=== PATIENT | female | born 1965 | race American Indian/Alaskan Native ===

== ENCOUNTER 2021-01-15 18:36 | Emergency (ER) | payer OTHER ==
--- NOTE | 2021-01-15 21:54 | Event Note ---
ED Screening Note Date of service: 01/15/21 Time: 21:52 ED Screening Note: 55-year-old -[place] female presents to the emergency room for elevated blood pressure. Patient has a history of hypertension is currently on amlodipine 5 mg daily. 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 Patient denies any chest pain no shortness of breath no change in vision no nausea no vomiting no headache. It was noted that patient's blood pressure in triage was 208/110 with a pulse of 120. I repeated after patient's been here in our blood pressure was 218/110 pulse of 119. This initial assessment/diagnostic orders/clinical plan/treatment(s) is/are subject to change based on patients health status, clinical progression and re- assessment by fellow clinical providers in the ED. Further treatment and workup at subsequent clinical providers discretion. Patient/guardian urged not to elope from the ED as their condition may be serious if not clinically assessed and managed. Initial orders include: CBC CMP urinalysis EKG has been ordered.
[2021-01-15 22:07] LABS: Basophils # (Auto) 0.1 K/mm3 (0.0-0.1); Basophils % (Auto) 1.7 % (0.0-1.8); Eosinophils # (Auto) 0.1 K/mm3 (0.0-0.4); Eosinophils % (Auto) 1.5 % (0.0-4.3); Hematocrit 41.9 % (30.3-42.9); Hemoglobin 14.2 gm/dl (10.1-14.3); Lymphocytes # (Auto) 2.2 K/mm3 (1.2-5.4); Lymphocytes % (Auto) 30.9 % (13.4-35.0); Mean Corpuscular HGB Conc 34 % (30-34); Mean Corpuscular Volume 93 fl (79-97); Monocytes # (Auto) 0.7 K/mm3 (0.0-0.8); Monocytes % (Auto) 9.9 % (0.0-7.3); Platelet Count 445 K/mm3 (140-440); Red Cell Distribution Width 14.1 % (13.2-15.2)
--- NOTE | 2021-01-15 22:13 | Emergency Department Report ---
ED General Adult HPI - General Chief complaint: High BP Stated complaint: HBP Time Seen by Provider: 01/15/21 22:10 Source: patient Mode of arrival: Wheelchair Limitations: No Limitations - History of Present Illness Initial comments: Blood pressure elevated at home. No symptoms, no n/v, no sob, no chest pain. Patient was being checked on by nurse because she is s/p toe amp, and bp was found to be elevated. she states that she has been eating more salt lately. -: Gradual - Related Data Previous Rx's Medication Instructions Recorded Last Taken Type Losartan Potassium 100 mg PO DAILY #90 tablet 01/16/21 Unknown Rx Potassium Chloride [K-Dur] 10 meq PO QDAY #90 tablet 01/16/21 Unknown Rx Allergies Allergy/AdvReac Type Severity Reaction Status Date / Time No Known Allergies Allergy Unverified 01/15/21 20:56 ED Review of Systems ROS: Stated complaint: HBP Other details as noted in HPI Constitutional: denies: chills, fever Eyes: denies: eye pain, eye discharge, vision change ENT: denies: ear pain, throat pain Respiratory: denies: cough, shortness of breath, wheezing Cardiovascular: denies: chest pain, palpitations Endocrine: no symptoms reported Gastrointestinal: denies: abdominal pain, nausea, diarrhea Genitourinary: denies: urgency, dysuria, discharge Musculoskeletal: denies: back pain, joint swelling, arthralgia Skin: denies: rash, lesions Neurological: denies: headache, weakness, paresthesias Psychiatric: denies: anxiety, depression Hematological/Lymphatic: denies: easy bleeding, easy bruising ED Past Medical Hx - Past Medical History Previous Medical History?: Yes Hx Hypertension: Yes Hx Diabetes: Yes - Surgical History Past Surgical History?: Yes Additional Surgical History: RT FOOT, 2ND,3RD DIGIT AMPUTATED,HASEEB PICC - Social History Smoking Status: Never Smoker Substance Use Type: None - Medications Home Medications: Home Medications Medication Instructions Recorded Confirmed Last Taken Type Losartan Potassium 100 mg PO DAILY #90 tablet 01/16/21 Unknown Rx Potassium Chloride [K-Dur] 10 meq PO QDAY #90 tablet 01/16/21 Unknown Rx ED Physical Exam - General Limitations: No Limitations General appearance: alert, in no apparent distress - Head Head exam: Present: atraumatic, normocephalic - Eye Eye exam: Present: normal appearance - ENT ENT exam: Present: mucous membranes moist - Neck Neck exam: Present: normal inspection - Respiratory Respiratory exam: Present: normal lung sounds bilaterally. Absent: respiratory distress - Cardiovascular Cardiovascular Exam: Present: regular rate, normal rhythm. Absent: systolic murmur, diastolic murmur, rubs, gallop - GI/Abdominal GI/Abdominal exam: Present: soft, normal bowel sounds - Extremities Exam Extremities exam: Present: normal inspection - Back Exam Back exam: Present: normal inspection - Neurological Exam Neurological exam: Present: alert, oriented X3 - Psychiatric Psychiatric exam: Present: normal affect, normal mood - Skin Skin exam: Present: warm, dry, intact, normal color. Absent: rash ED Course Vital Signs 01/15/21 01/15/21 01/15/21 19:45 20:45 22:06 Temperature 98.4 F 98.4 F Pulse Rate 119 H 120 H Respiratory 18 18 13 Rate Blood Pressure 208/103 208/110 O2 Sat by Pulse 99 100 98 Oximetry 01/15/21 01/15/21 01/15/21 22:15 22:30 22:31 Temperature Pulse Rate 107 H 104 H 100 H Respiratory 13 16 Rate Blood Pressure 214/105 214/105 214/105 O2 Sat by Pulse 99 99 Oximetry 01/15/21 01/15/21 01/15/21 22:45 23:00 23:15 Temperature Pulse Rate 88 87 84 Respiratory 17 14 17 Rate Blood Pressure 214/105 180/96 180/96 O2 Sat by Pulse 99 99 99 Oximetry 01/15/21 01/15/21 01/15/21 23:30 23:45 23:49 Temperature Pulse Rate 88 89 86 Respiratory 14 17 18 Rate Blood Pressure 185/97 185/97 185/97 O2 Sat by Pulse 100 100 99 Oximetry 01/15/21 01/16/21 01/16/21 23:55 00:00 00:15 Temperature Pulse Rate 91 H 95 H 84 Respiratory 19 15 Rate Blood Pressure 185/97 207/115 207/115 O2 Sat by Pulse 98 100 Oximetry 01/16/21 01/16/21 01/16/21 00:30 00:45 01:00 Temperature Pulse Rate 88 85 89 Respiratory 19 22 21 Rate Blood Pressure 188/111 188/111 150/90 O2 Sat by Pulse 99 98 97 Oximetry 01/16/21 01:15 Temperature Pulse Rate 85 Respiratory 19 Rate Blood Pressure 150/90 O2 Sat by Pulse 99 Oximetry ED Medical Decision Making - Lab Data Result diagrams: 01/15/21 21:26 01/15/21 21:26 - Medical Decision Making htn: treated with labetalol 20mg patient still hypertensive, clonidine 0.2mg po give, k: 2.7, patient treated with kdur 40mg po then krider 10mg iv. Blood pressure 150/90 at discharge. Patient feels much better. - Differential Diagnosis htn, Critical care attestation.: If time is entered above; I have spent that time in minutes in the direct care of this critically ill patient, excluding procedure time. ED Disposition Clinical Impression: Hypertension Qualifiers: Hypertension type: essential hypertension Qualified Code(s): I10 - Essential (primary) hypertension Disposition: - TO HOME OR SELFCARE Is pt being admited?: No Does the pt Need Aspirin: No Condition: Stable Instructions: Hypertension During , [id number], Preventing Hypertension, Hypertension, Adult, Hypertension (ED) Prescriptions: Potassium Chloride [K-Dur] 10 meq PO QDAY #90 tablet Losartan Potassium 100 mg PO DAILY #90 tablet Referrals: ANETA PEÑALOZA MD [Other] - 3-5 Days Forms: Work/School Release Form(ED)
[2021-01-15 22:27] LABS: Alanine Aminotransferase 16 units/L (7-56); Albumin 3.4 g/dL (3.9-5); BUN/Creatinine Ratio 12; Blood Urea Nitrogen 11 mg/dL (7-17); Calcium 9.3 mg/dL (8.4-10.2); Hemolysis Index 24
[2021-01-15] MEDS ORDERED: POTASSIUM CHLORIDE ER 20 MEQ TAB PO ONE (23:06)
[2021-01-15] MEDS ORDERED: cloNIDine 0.2 MG TAB PO ONE (23:06)
[2021-01-15] MEDS ORDERED: POTASSIUM CHLORIDE 10 MEQ 10 MEQ/100 ML BAG IV ONE (23:07)
[2021-01-16] MEDS ORDERED: hydrALAZINE 20 MG/1 ML INJ IV ONE (00:36)
[2021-01-16 01:42] VITALS: BP 150/90
== END 2021-01-16 01:42 | disposition home or self-care (01) ==
LOC: ED 18:36
DX: I10 Essential (primary) hypertension (principal); E11.9 Type 2 diabetes mellitus without complications; Z79.899 Other long term (current) drug therapy; Z98.890 Other specified postprocedural states; Z88.8 Allergy status to other drugs, medicaments and biological substances; Z88.6 Allergy status to analgesic agent
CPT/HCPCS: 36415; 80053; 85025; 96361; 96374; 99283; J1642; J3480

== ENCOUNTER 2021-01-17 00:29 | Emergency (ER) | payer OTHER ==
[2021-01-17] MEDS ORDERED: SODIUM CHLORIDE 0.9% 1000 ML 1,000 ML IV ONE (02:31)
--- NOTE | 2021-01-17 02:32 | Emergency Department Report ---
ED General Adult HPI - General Chief complaint: High BP Stated complaint: ELEVATED BP Source: patient Mode of arrival: Ambulatory Limitations: No Limitations - History of Present Illness Initial comments: Blood pressure elevated at home. No symptoms, no n/v, no sob, no chest pain. Patient was being checked on by nurse because she is s/p toe amp 01/01/21, and bp was found to be elevated. states back tonight for BP elevation , started amlodipine and losartan 2 days ago. pt denies symptoms at this time. - Related Data Previous Rx's Medication Instructions Recorded Last Taken Type Losartan Potassium 100 mg PO DAILY #90 tablet 01/16/21 Unknown Rx Potassium Chloride [K-Dur] 10 meq PO QDAY #90 tablet 01/16/21 Unknown Rx Allergies Allergy/AdvReac Type Severity Reaction Status Date / Time No Known Allergies Allergy Unverified 01/15/21 20:56 ED Review of Systems ROS: Stated complaint: ELEVATED BP Other details as noted in HPI Constitutional: denies: chills, fever Eyes: denies: eye pain, eye discharge, vision change ENT: denies: ear pain, throat pain Respiratory: denies: cough, shortness of breath, wheezing Cardiovascular: denies: chest pain, palpitations Endocrine: no symptoms reported Gastrointestinal: denies: abdominal pain, nausea, diarrhea Genitourinary: denies: urgency, dysuria, discharge Musculoskeletal: denies: back pain, joint swelling, arthralgia Skin: denies: rash, lesions Neurological: denies: headache, weakness, paresthesias Psychiatric: denies: anxiety, depression Hematological/Lymphatic: denies: easy bleeding, easy bruising ED Past Medical Hx - Past Medical History Previous Medical History?: Yes Hx Hypertension: Yes Hx Diabetes: Yes - Surgical History Past Surgical History?: Yes Additional Surgical History: RT FOOT, 2ND,3RD DIGIT AMPUTATED,HASEEB PICC - Social History Smoking Status: Never Smoker Substance Use Type: None - Medications Home Medications: Home Medications Medication Instructions Recorded Confirmed Last Taken Type Losartan Potassium 100 mg PO DAILY #90 tablet 01/16/21 Unknown Rx Potassium Chloride [K-Dur] 10 meq PO QDAY #90 tablet 01/16/21 Unknown Rx ED Physical Exam - General Limitations: No Limitations General appearance: alert, in no apparent distress - Head Head exam: Present: atraumatic, normocephalic - Eye Eye exam: Present: normal appearance, EOMI Pupils: Present: normal accommodation - ENT ENT exam: Present: normal exam, mucous membranes moist - Neck Neck exam: Present: normal inspection - Respiratory Respiratory exam: Present: normal lung sounds bilaterally. Absent: wheezes, chest wall tenderness - Cardiovascular Cardiovascular Exam: Present: normal rhythm, tachycardia, normal heart sounds. Absent: systolic murmur, diastolic murmur, rubs, gallop - GI/Abdominal GI/Abdominal exam: Present: soft, normal bowel sounds. Absent: distended, tenderness, bruit, hernia - Extremities Exam Extremities exam: Present: normal inspection - Back Exam Back exam: Present: normal inspection - Neurological Exam Neurological exam: Present: alert, oriented X3 - Psychiatric Psychiatric exam: Present: normal affect, normal mood - Skin Skin exam: Present: warm, dry, intact, normal color. Absent: rash ED Course Vital Signs 01/17/21 01:26 Temperature 98.1 F Pulse Rate 120 H Respiratory 16 Rate Blood Pressure 236/105 O2 Sat by Pulse 99 Oximetry Critical care attestation.: If time is entered above; I have spent that time in minutes in the direct care of this critically ill patient, excluding procedure time. ED Disposition Condition: Stable
[2021-01-17 03:05] LABS: Basophils # (Auto) 0.1 K/mm3 (0.0-0.1); Basophils % (Auto) 0.7 % (0.0-1.8); Eosinophils # (Auto) 0.2 K/mm3 (0.0-0.4); Eosinophils % (Auto) 1.7 % (0.0-4.3); Hematocrit 37.7 % (30.3-42.9); Hemoglobin 12.9 gm/dl (10.1-14.3); Lymphocytes # (Auto) 2.8 K/mm3 (1.2-5.4); Lymphocytes % (Auto) 28.5 % (13.4-35.0); Mean Corpuscular HGB Conc 34 % (30-34); Mean Corpuscular Volume 91 fl (79-97); Monocytes # (Auto) 0.9 K/mm3 (0.0-0.8); Monocytes % (Auto) 9.8 % (0.0-7.3); Platelet Count 479 K/mm3 (140-440); Red Blood Count 4.13 M/mm3 (3.65-5.03); Red Cell Distribution Width 13.9 % (13.2-15.2)
[2021-01-17 03:22] LABS: Alanine Aminotransferase 13 units/L (7-56); Albumin 4.1 g/dL (3.9-5); BUN/Creatinine Ratio 15; Blood Urea Nitrogen 12 mg/dL (7-17); Calcium 9.4 mg/dL (8.4-10.2); Hemolysis Index 29
--- NOTE | 2021-01-17 04:04 | Emergency Department Report ---
ED General Adult HPI - General Chief complaint: High BP Stated complaint: ELEVATED BP PUI?: No Time Seen by Provider: 01/17/21 03:48 Source: patient Mode of arrival: Ambulatory Limitations: No Limitations - History of Present Illness Initial comments: CC: My blood pressure is up. HPI: THIs is a 55 yo female with hx of DM, HTN, toe amputation, currently on home antibiotics through PICC line for diabetic right foot infection. She presents with elevated blood pressure readings. She takes amlodipine 5 mg and valsartan 100 mg. She has been under a lot of stress. New diagnosis of DM and HTN last year. She required the amputation of two toes in her foot. She has recently lost her job. She has not been compliant with low sodium diet. She feels fine otherwise. She is a little anxious. She denies headache, blurry vision, chest pain, shortness of breath. -: Gradual, days(s) (2 days) Severity scale (0 -10): 0 Consistency: constant Improves with: medication Worsens with: none Associated Symptoms: denies other symptoms - Related Data Previous Rx's Medication Instructions Recorded Last Taken Type Losartan Potassium 100 mg PO DAILY #90 tablet 01/16/21 Unknown Rx Potassium Chloride [K-Dur] 10 meq PO QDAY #90 tablet 01/16/21 Unknown Rx Allergies Allergy/AdvReac Type Severity Reaction Status Date / Time codeine Allergy Unknown Verified 01/17/21 04:20 ED Review of Systems ROS: Stated complaint: ELEVATED BP Other details as noted in HPI Comment: All other systems reviewed and negative Constitutional: denies: fever, malaise Respiratory: denies: no symptoms reported, shortness of breath Cardiovascular: denies: chest pain, palpitations Gastrointestinal: denies: abdominal pain, nausea, vomiting ED Past Medical Hx - Past Medical History Previous Medical History?: Yes Hx Hypertension: Yes Hx Diabetes: Yes - Surgical History Past Surgical History?: Yes Additional Surgical History: RT FOOT, 2ND,3RD DIGIT AMPUTATED,HASEEB PICC - Social History Smoking Status: Never Smoker Substance Use Type: None - Medications Home Medications: Home Medications Medication Instructions Recorded Confirmed Last Taken Type Losartan Potassium 100 mg PO DAILY #90 tablet 01/16/21 Unknown Rx Potassium Chloride [K-Dur] 10 meq PO QDAY #90 tablet 01/16/21 Unknown Rx ED Physical Exam - General Limitations: No Limitations General appearance: alert, in no apparent distress - Head Head exam: Present: atraumatic, normocephalic - Eye Eye exam: Present: normal appearance - ENT ENT exam: Present: mucous membranes moist - Neck Neck exam: Present: normal inspection, full ROM - Respiratory Respiratory exam: Present: normal lung sounds bilaterally. Absent: respiratory distress, wheezes, rales, rhonchi, stridor - Cardiovascular Cardiovascular Exam: Present: regular rate, normal rhythm, normal heart sounds. Absent: systolic murmur, diastolic murmur, rubs, gallop - GI/Abdominal GI/Abdominal exam: Present: soft, normal bowel sounds. Absent: distended, tenderness, guarding, rebound - Extremities Exam Extremities exam: Present: normal inspection, other (RUE PICC site clean dry) - Neurological Exam Neurological exam: Present: alert, oriented X3 - Psychiatric Psychiatric exam: Present: normal affect, normal mood - Skin Skin exam: Present: warm, dry, intact, normal color. Absent: rash ED Course Vital Signs 01/17/21 01/17/21 01/17/21 01:26 03:00 04:00 Temperature 98.1 F 98.2 F Pulse Rate 120 H 112 H 111 H Respiratory 16 16 13 Rate Blood Pressure 236/105 199/110 Blood Pressure 194/99 [Left] O2 Sat by Pulse 99 100 100 Oximetry 01/17/21 01/17/21 04:20 05:00 Temperature Pulse Rate 95 H 93 H Respiratory 17 Rate Blood Pressure 199/110 149/80 Blood Pressure [Left] O2 Sat by Pulse 99 Oximetry ED Medical Decision Making - Lab Data Result diagrams: 01/17/21 02:44 01/17/21 02:44 Laboratory Results - last 24 hr 01/17/21 01/17/21 02:44 02:44 WBC 9.6 RBC 4.13 Hgb 12.9 Hct 37.7 MCV 91 MCH 31 MCHC 34 RDW 13.9 Plt Count 479 H Lymph % (Auto) 28.5 [place] % (Auto) 9.8 H Eos % (Auto) 1.7 Baso % (Auto) 0.7 Lymph # (Auto) 2.8 [place] # (Auto) 0.9 H Eos # (Auto) 0.2 Baso # (Auto) 0.1 Seg Neutrophils % 59.3 Seg Neutrophils # 5.7 Sodium 138 Potassium 3.5 L D Chloride 98.3 Carbon Dioxide 26 Anion Gap 17 BUN 12 Creatinine 0.8 Estimated GFR > 60 BUN/Creatinine Ratio 15 Glucose 277 H Calcium 9.4 Total Bilirubin 0.40 AST 16 ALT 13 Alkaline Phosphatase 80 Total Protein 7.1 Albumin 4.1 Albumin/Globulin Ratio 1.4 - EKG Data -: EKG Interpreted by Me EKG shows normal: sinus rhythm, axis Rate: tachycardia - EKG Data 01/17/21 04:03 EKG obtained 326 Sinus tachycardia rate 120 bpm normal axis normal intervals no ST elevation nonspecific T wave pattern - Medical Decision Making Asymptomatic hypertensive urgency: Patient treated with p.o. labetalol in the emergency department. CBC chemistry unremarkable with exception of mild hyperglycemia Repeat blood pressure 149/80 after p.o. labetalol. Patient un derstands to take both antihypertensive medication together in the morning. She has follow-up with her PCP today. Tachycardia attributed to anxiety. She is symptom-free. After verbal reassurance, heart rate normalized to 98 bpm without medical intervention Critical care attestation.: If time is entered above; I have spent that time in minutes in the direct care of this critically ill patient, excluding procedure time. ED Disposition Clinical Impression: Hypertensive urgency, Diabetes mellitus Disposition: DC-01 TO HOME OR SELFCARE Is pt being admited?: No Does the pt Need Aspirin: No Condition: Stable Instructions: Hypertension, Adult, [id number], Managing Your Hypertension, Diabetes Mellitus Type 2 in Adults (ED) Referrals: ANETA PEÑALOZA [Other] - MELL
[2021-01-17 05:05] VITALS: BP 149/80
--- NOTE | 2021-01-18 17:36 | Electrocardiograph Report ---
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
== END 2021-01-17 06:01 | disposition home or self-care (01) ==
LOC: ED 00:29
DX: I16.0 Hypertensive urgency (principal); E11.9 Type 2 diabetes mellitus without complications; Z98.890 Other specified postprocedural states; Z79.899 Other long term (current) drug therapy; Z88.8 Allergy status to other drugs, medicaments and biological substances
CPT/HCPCS: 36415; 80053; 85025; 93005